=== PATIENT | male | born 1945 | race Caucasian/White ===

== ENCOUNTER 2017-08-03 08:35 | Emergency (ER) | payer MEDICARE ==
[~2017-08-03] VITALS: Ht 180.3 cm; Wt 148.0 kg
[2017-08-03 08:38] VITALS: BP 168/52; PULSE 88
--- NOTE | 2017-08-03 08:38 | ED.REPORT ---
HPI-General Illness Date of Service Aug 03, 2017 ED Provider: Narinder Kamara MD The pt is a 72 y/o male w/ a hx of ESRD presenting to the ED via EMS due to a bleeding fistula of the L arm beginning this morning. The pt has two button holes in his arm and has been using a 15 gauge needle for the last two years and was using a 14 gauge needle prior. Denies any difficulty urinating. 6 months ago the pt reports his button hole forming a blood clot and not sealing up as usual. A month ago his etl software engineer sent him to see a vascular surgeon, Dr. Jhoan Arriaza, for his L arm blood vessels to be removed. The pt refused the surgery because he would like to continue doing home hemodialysis. The pt last had a dialysis treatment yesterday and is scheduled to have a treatment today. The pt has been doing home hemodialysis for the last 7 years, which he was able to receive after falling 27 feet causing his kidneys to fail. He does home hemodialysis 5x/wk and feels much better than when he goes to the kidney center for the dialysis, which he does occasionally to give his a break. Nursing Notes Stated Complaint: BLEEDING FISTULA Chief Complaint: Bleeding fistula on L arm Nursing Notes Reviewed: Yes Allergies: Coded Allergies: Iodine and Iodide Containing Produc (Verified Allergy, Intermediate, ) Sulfa (Sulfonamide Antibiotics) (Verified Allergy, Intermediate, 08/03/17) levofloxacin (Verified Allergy, Intermediate, 08/03/17) General Time Seen by MD: 08:37 Chief Complaint Other (Bleeding fistula of L arm ) Hx Obtained From: Patient Arrived By: Walk-in Sudden in Onset?: Yes Onset Occurred: Just prior to arrival Symptom Duration: Waxes and wanes Recent Healthcare: No recent hospitalization, Recent doctor visit Similar Sx Previous: Yes Past Medical History Past Medical History ESRD - on home hemodialysis Past Surgical History None reported Social History Other Social History: Good social support Ambulatory Status Independent Review of Systems Bleeding fistula of L arm Full Review of Systems Male: Denies Dysuria, Denies Urinary frequency Complete sys rev & neg: except as marked. Physical Exam Vital Signs Vital Signs Date Time Temp Pulse Resp B/P Pulse Ox O2 Delivery O2 Flow Rate FiO2 08/03/17 08:38 36.9 88 168/52 Initial VS: Reviewed General/Constitutional: Well-developed, Well-nourished Head / Eyes: Atraumatic, Normocephalic, PERRL ENT: Mucous membranes moist, Conjunctiva normal, No scleral icterus Neck: Supple, Non-tender, Full range of motion Respiratory: Breath sounds normal, Clear to auscultation, No respiratory distress Cardiovascular: Regular rate & rhythm, Heart sounds normal, Intact distal pulses Neurologic: Alert, Oriented, Nonfocal Psychiatric: Mood/affect normal, Behavior normal, Normal thought content Skin: No rash, Warm, Dry Fresh clot over L arm fistula that is not actively bleeding Re-Eval/Medical Decision Source of Hx: Old records Time of Eval: 10:30 Re-Evaluation/Progress Note: Pt rechecked. His has brought him his bandages which have helped stop the bleeding. F/U instructions and RTER warnings given. All questions addressed. Counseled Regarding: Diagnosis, Lab results, Need for follow-up, When/why to return to ED Discharge & Departure Primary Impression: Dialysis AV fistula malfunction Encounter type: initial encounter Qualified Code: T82.590A - Other mechanical complication of surgically created arteriovenous fistula, initial encounter Disposition: Home Discharge Condition All VS Reviewed: Yes Condition: Stable Additional Instructions: I am glad that the bleeding has stopped. No further treatment is indicated at this time. I recommend that you talk to nephrology and surgery Saturday about the plan moving forward. Referrals: Juancarlos Velazquez MD (PCP) Scribe Attestation Portions of this note were transcribed by Ernst Sethi. I, Dr. Kamara personally performed the history, physical exam and medical decision-making; I reviewed and confirmed the accuracy of the information in the transcribed note. copies to: Juancarlos Velazquez MD, Kirk H MD Aug 03, 2017 08:38 Ernst Sethi Aug 03, 2017 10:07
[2017-08-03 10:52] VITALS: BP 152/54; PULSE 84; RESP 20
== END 2017-08-03 10:45 | disposition home or self-care (01) ==
LOC: SED 08:35
DX: T82.590A Other mechanical complication of surgically created arteriovenous fistula, initial encounter (principal); Y71.2 Prosthetic and other implants, materials and accessory cardiovascular devices associated with adverse incidents; Y93.89 Activity, other specified; Y99.8 Other external cause status; Y92.018 Other place in single-family (private) house as the place of occurrence of the external cause; N18.6 End stage renal disease; Z99.2 Dependence on renal dialysis; Z88.2 Allergy status to sulfonamides; Z88.8 Allergy status to other drugs, medicaments and biological substances